=== PATIENT | female | born 1980 | race Caucasian/White ===

== ENCOUNTER 2017-01-02 13:02 | Inpatient (IN) | payer BC ==
[~2017-01-02] VITALS: Ht 162.6 cm; Wt 56.2 kg
--- NOTE | 2017-01-02 13:08 | NUR ---
pt bibra to er bed 14. here for aloc. possible od to methadone per report. pt appears sleepy and lethargic. arousable. placed on monitor. 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 awaitng md torre. will monitor closely.
--- NOTE | 2017-01-02 13:17 | NUR ---
[facility] [employer] cook at bedside for eval.
[2017-01-02 13:43] LABS: BASOPHILS % (AUTO) 0.5 % (0.0-2.0); EOSINOPHILS # (AUTO) 0.1 /CMM (0.0-0.7); EOSINOPHILS % (AUTO) 2.2 % (0.0-6.0); HEMATOCRIT 37 % (33-45); HEMOGLOBIN 12.5 g/dL (11.5-14.8); LYMPHOCYTES # (AUTO) 2.3 /CMM (0.8-4.8); LYMPHOCYTES % (AUTO) 54.3 % (20.0-44.0); MEAN CORPUSCULAR HEMOGLOBIN 30 PG (26.0-33.0); MEAN CORPUSCULAR HGB CONC 34 g/dl (31.0-36.0); MEAN CORPUSCULAR VOLUME 88 fL (82-100); MONOCYTES # (AUTO) 0.3 /CMM (0.1-1.30); MONOCYTES % (AUTO) 6.7 % (2.0-12.0); NEUTROPHILS # (AUTO) 1.6 /CMM (1.8-8.9); NEUTROPHILS % (AUTO) 36.3 % (43.0-81.0); PLATELET COUNT (AUTO) 298 /CMM (150-450); RDW COEFFICIENT OF VARIATION 13.9 (11.5-15.0); RED BLOOD CELL COUNT(AUTO) 4.13 MIL/uL (4.0-5.2); WHITE BLOOD COUNT (AUTO) 4.3 K/uL (4.3-11.0)
[2017-01-02 14:01] LABS: CALCIUM, SERUM 8.2 mg/dL (8.5-10.1); CREATININE 0.7 mg/dL (0.6-1.3); POTASSIUM 3.5 mmol/L (3.5-5.1)
[2017-01-02 14:07] LABS: ALBUMIN 3.5 g/dL (3.4-5.0); BILIRUBIN,DIRECT 0.2 mg/dL (0.0-0.2); BILIRUBIN,TOTAL 0.4 mg/dL (0.2-1.0); TOTAL PROTEIN, SERUM 7.7 g/dL (6.4-8.2)
[2017-01-02 14:08] LABS: SALICYLATE 2.1 mg/dL (2.8-20.0)
[2017-01-02] MEDS ORDERED: ONDANSETRON 4 MG TAB.RAPDIS ONE (14:16)
--- NOTE | 2017-01-02 14:20 | NUR ---
pt is nauseated. marsii caustic pump operator aware. order for zofran 4mg odt SL. carried out.
[2017-01-02] MEDS ORDERED: ONDANSETRON 4 MG TAB.RAPDIS SL ONE (14:30)
[2017-01-02] MEDS ORDERED: METH10TA2 PO (15:09)
--- NOTE | 2017-01-02 15:23 | NUR ---
CALLED NURSING SUP. FOR JOY BED
--- NOTE | 2017-01-02 15:25 | NUR ---
NEETU CALLED, [employer] FUNERAL ATTENDANT, TRANSFERRED CALL TO CAROL (RADHA)
[2017-01-02] MEDS ORDERED: ALBUTEROL FS 2.5 MG/0.5 ML VIAL.NEB NEB ONE (15:30)
[2017-01-02] MEDS ORDERED: LEVOFLOXACIN 750 MG /D5W 150ML PIGGYBACK IV ONE (15:30)
[2017-01-02] MEDS ORDERED: IV SET PRIMARY PUMP SET 1 EA INFUS.SET MC ONE (15:35)
[2017-01-02] MEDS ORDERED: LEVOFLOXACIN 750 MG /D5W 150ML 150 ML IV ONE (15:35)
[2017-01-02] MEDS ORDERED: ALBUTEROL FS 2.5 MG/0.5 ML VIAL.NEB ONE (16:07)
--- NOTE | 2017-01-02 16:53 | NUR ---
report given to emmanuel. pt awaiting transfer to floor.
[2017-01-02] MEDS ORDERED: MAGNESIUM HYDROXIDE 30 ML UDC PO PRN (17:00)
[2017-01-02] MEDS ORDERED: ZOLPIDEM TARTRATE 5 MG TABLET PO PRN (17:00)
[2017-01-02] MEDS ORDERED: ACETAMINOPHEN 325 MG TABLET PO PRN (17:00)
[2017-01-02] MEDS ORDERED: IV NS 0.9% 1,000 ML IV PRN (17:00)
[2017-01-02 18:00] VITALS: BP 101/64
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
[2017-01-02] MEDS: CEFTRIAXONE 1 G in IV D5W 50 ML IV SCH (19:07)
[2017-01-02] MEDS: NICOTINE PATCH (14MG) 14 MG PATCH.TD24 TD SCH (19:07)
[2017-01-02 20:00] VITALS: BP 95/52
[2017-01-02] MEDS: clonazePAM 1 MG TABLET PO PRN (20:55)
--- NOTE | 2017-01-02 20:56 | NUR ---
JOY/RN- PT STATES THST SHE IS FEELING ANXIOUS. CALMING MEASURES GIVEN. NON PHARMACOLOGICAL MEANS OF ANTI ANXIETY METHODS INEFFECTIVE. PRN KLONOPIN 1 MG PO GIVEN PRN FOR ANXIETY. TOLERATED WELL. NO S/SX OF ADVERSE REACTION NOTED. WILL MONITOR FOR CHANGES IN BEHAVIOR.
[2017-01-03] VITALS: BP 96/52
[2017-01-03 04:00] VITALS: BP 96/63
--- NOTE | 2017-01-03 06:34 | NUR ---
JOY/RN - ALL NEEDS ATTENDED AND MET. NO ACUTE DISTRESS NOTED. WILL ENDORSE TO AM SHIFT FOR CONTINUATION OF CARE.
--- NOTE | 2017-01-03 07:00 | NUR ---
CALLED [facility] AND FAXED REQUEST FOR RECORDS TO BE FAXED OVER. CLINIC CONFIRMED HAVING RECEIVED REQUEST. NOTED CLINIC CLOSES AT 0945.
[2017-01-03 07:19] LABS: BASOPHILS % (AUTO) 0.4 % (0.0-2.0); EOSINOPHILS # (AUTO) 0.1 /CMM (0.0-0.7); EOSINOPHILS % (AUTO) 3.5 % (0.0-6.0); HEMATOCRIT 36 % (33-45); HEMOGLOBIN 12.1 g/dL (11.5-14.8); LYMPHOCYTES # (AUTO) 1.6 /CMM (0.8-4.8); MEAN CORPUSCULAR HEMOGLOBIN 30 PG (26.0-33.0); MEAN CORPUSCULAR HGB CONC 34 g/dl (31.0-36.0); MEAN CORPUSCULAR VOLUME 90 fL (82-100); MONOCYTES # (AUTO) 0.3 /CMM (0.1-1.30); MONOCYTES % (AUTO) 9.6 % (2.0-12.0); NEUTROPHILS # (AUTO) 1.3 /CMM (1.8-8.9); NEUTROPHILS % (AUTO) 38.5 % (43.0-81.0); PLATELET COUNT (AUTO) 256 /CMM (150-450); RDW COEFFICIENT OF VARIATION 14.9 (11.5-15.0); RED BLOOD CELL COUNT(AUTO) 3.96 MIL/uL (4.0-5.2); WHITE BLOOD COUNT (AUTO) 3.4 K/uL (4.3-11.0)
[2017-01-03 07:54] LABS: CALCIUM, SERUM 8.5 mg/dL (8.5-10.1); CREATININE 0.7 mg/dL (0.6-1.3); MAGNESIUM 1.9 mg/dL (1.8-2.4); PHOSPHORUS 3.3 mg/dL (2.5-4.9); POTASSIUM 4.2 mmol/L (3.5-5.1)
[2017-01-03 08:00] VITALS: BP 101/68
[2017-01-03] MEDS: NICOTINE PATCH (14MG) 14 MG PATCH.TD24 TD SCH (08:51)
[2017-01-03] MEDS: PANTOPRAZOLE 40 MG TABLET.DR PO SCH (08:51)
[2017-01-03] MEDS: clonazePAM 1 MG TABLET PO PRN ×2 (08:52→18:05)
--- NOTE | 2017-01-03 09:30 | NUR ---
CALLED [facility] 2X AND PHARMACIST CALLED 1 TIME- TO NO AVAIL. PHARMACY AND DOCTOR UNABLE TO PRESCRIBE [facility] TODAY.
--- NOTE | 2017-01-03 11:11 | NUR ---
RN NOTE PER DR. RUBÉN STARKS, PATIENT IS TO BE DISCHARGE AFTER INDUSTRIAL PIPEFITTER JOURNEYMAN TALKS TO PATIENT ABOUT FINDING HOUSING. PATIENT STATES "I NEED SOMEWHERE TO SLEEP BECAUSE OTHERWISE I WILL BE ON THE STREETS". INDUSTRIAL PIPEFITTER JOURNEYMAN ASH SPOKE TO PATIENT AND STATED SHE WILL TRY TO FIND CUSTODIAL. PATIENT STATING HAVING NAUSEA RELATED TO NOT RECEIVING [facility] TODAY. OFFERED ANTINAUSEA/EMETIC. PATIENT REFUSED REQUESTED NARCOTIC. DR. RUBÉN STARKS GAVE VERBAL ORDER FOR PERCOSET 1 TIME NOW.
--- NOTE | 2017-01-03 11:26 | NUR ---
MEDICATION RETURN NOTE ACCIDENTALLY REMOVED ONE TAB PERCOSET INSTEAD OF TWO TABS ORDERED. NOTIFIED PHARMACIST WHO SAID RETURN MEDICATION AND ORDER WILL BE RE-ENTERED FOR ONE TIME DOES OF PERCOSET . MEDICATION RETURNED WITH WITNESS.
[2017-01-03] MEDS ORDERED: oxyCODONE/APAP (5/325 MG) 1 UDTAB TABLET PO ONE (11:30)
[2017-01-03] MEDS: ONDANSETRON HCL/PF 4 MG/2 ML VIAL IVP PRN (11:43)
[2017-01-03 12:00] VITALS: BP_SYST 101; BP_SYST 111; BP_DIAS 68; BP_DIAS 69
[2017-01-03] MEDS: LORAZEPAM INJ 2 MG/ML VIAL IV PRN (13:50)
[2017-01-03 16:00] VITALS: BP 97/49
[2017-01-03] MEDS ORDERED: SECONDARY IV SET 1 EA INFUS.SET MC ONE (16:29)
[2017-01-03] MEDS: LEVOFLOXACIN 750 MG /D5W 150ML 750 MG in PREMIX 1 EA IV SCH (16:33)
[2017-01-03] MEDS: CEFTRIAXONE 1 G in IV D5W 50 ML IV SCH (17:41)
--- NOTE | 2017-01-03 19:04 | NUR ---
end of shift patient in stable condition at end of shift. paged dr. Tonny Jerome regarding pending discharge for placement, no response. informed patient's significant other that visiting hours end at 1999. verbalized understanding. call light in reach.
[2017-01-03 20:00] VITALS: BP 110/71
--- NOTE | 2017-01-03 20:20 | NUR ---
INITIAL RN NOTES RECEIVED PT AWAKE IN BED, AOX4, STATES SHE IS COMFORTABLE, ALL NEEDS MET MET, DENIES ANY SOB OR PAIN, CLEAN AND DRY, WITH [facility] ORDER TO BE F/U WITH PHARMACY IN AM.
[2017-01-04] VITALS (7 sets, daily range): BP systolic 91–131; BP diastolic 48–88
--- NOTE | 2017-01-04 06:51 | NUR ---
CLOSING RN NOTES ENDORSED PT AWAKE IN BED, AOX4, STATES SHE IS COMFORTABLE, ALL NEEDS MET MET, DENIES ANY SOB OR PAIN, CLEAN AND DRY, WITH [facility] ORDER TO BE F/U WITH PHARMACY IN AM,ALL NEEDS ATTENDED, FOR PENDING DISCHARGE IN AM.
--- NOTE | 2017-01-04 08:00 | NUR ---
TELE1/RN AM SHIFT INITIAL NOTES RECEIVED PT ASLEEP IN BED. PT A/O X 4. AROUSEABLE, DENIES PAIN. NO ACUTE CHANGE OF CONDITION NOTED. ON ROOM AIR SATURATING @ 100%, LUNG SOUNDS CLEAR. ON TELE WITH SINUS RHYTHM, HR 84. WITH ON GOING IV INFUSION OF NS @ 75CC/HR, IV SITE PATENT WITH NO S/S OF INFECTION. PT IS COMFORTABLE. SCHEDULED AM MEDS TO BE GIVEN. CL WITHIN REACHED, SAFETY MAINTAINED AND ISOLATION OBSERVED. ON GOING MONITORING.
[2017-01-04] MEDS: NICOTINE PATCH (14MG) 14 MG PATCH.TD24 TD SCH (09:11)
[2017-01-04] MEDS: METHADONE HCL 10 MG TABLET PO SCH (09:12)
[2017-01-04] MEDS: PANTOPRAZOLE 40 MG TABLET.DR PO SCH (09:12)
[2017-01-04] MEDS: clonazePAM 1 MG TABLET PO PRN ×2 (09:18→21:10)
--- NOTE | 2017-01-04 10:00 | NUR ---
TELE1/RN ROUNDS - DR. MONTANA PT SEEN & EXAMINED BY DR. MONTANA. WITH NEW ORDER RECEIVED TO D/C CONTINUOUS IV INFUSION. ORDER NOTED AND CARRIED OUT. MONITORING CONTINUED.
[2017-01-04] MEDS: LORAZEPAM INJ 2 MG/ML VIAL IV PRN (12:42)
[2017-01-04] MEDS: LEVOFLOXACIN 750 MG /D5W 150ML 750 MG in PREMIX 1 EA IV SCH (16:01)
--- NOTE | 2017-01-04 17:00 | NUR ---
TELE1/RN AFTERNOON ROUNDS NO ACUTE CHANGE OF CONDITION. PT'S SIGNIFICANT OTHER AT BEDSIDE. MONITORING CONTINUED.
[2017-01-04] MEDS: CEFTRIAXONE 1 G in IV D5W 50 ML IV SCH (17:45)
--- NOTE | 2017-01-04 19:02 | NUR ---
TELE1/RN AM SHIFT END NOTES NO ACUTE CHANGE OF CONDITION NOTED DURING THE SHIFT. NEEDS MET. PT ENDORSED TO PM NURSE TO CONTINUE CARE. CL WITHIN REACHED, SAFETY MAINTAINED AND ISOLATION OBSERVED.
--- NOTE | 2017-01-04 19:30 | NUR ---
RN OPENING NOTES; RECEIVED PATIENT ON BED AWAKE ALOX4 VERBALLY RESPONSIVE. ON ROOM AIR WITH EVEN AND UNLABORED BREATHING. IV ACCESS ON R WRIST G20 IV ANTIBIOTIC INFUSING. NO COMPLAINTS OF PAIN AT THIS TIME. SAFETY MEASURES ENSURED. CALL LIGHT WITHIN REACH. MONTIORED ACCORDINGLY.
[2017-01-04] MEDS: MUPIROCIN OINT 2% 22 GM TUBE SCH (21:10)
[2017-01-05] VITALS: BP 98/56
[2017-01-05 04:00] VITALS: BP 114/77
--- NOTE | 2017-01-05 06:54 | NUR ---
RN CLOSING NOTES;PATIENT REMAINED IN BED NOT IN APPARENT DISTRESS. NO ACUTE CHANGES OCCURRED WITHIN SHIFT. REMAINED SR ON MONITOR. CONTINUOUSLY MONITORED. ENDORSED TO AM SHIFT RN.
--- NOTE | 2017-01-05 07:00 | NUR ---
RN NOTES; RECEIVED PATIENT ON BED, AWAKE ALOX4, RESPIRATION EVEN AND UNLABORED, ON ROOM , NO DISTRESS NOTED, R WRIST IV SITE G 20 CDI, ON TELE , PT DINES ANY DISTRESS AT THIS TIME , SR UP x3, CALL LIGHT WITHIN EASY REACH, CONTINUE TO MONITOR PT CLOSELY AND NOTIFY MD FOR ANY SIGNIFICANT CHANGES.
[2017-01-05] MEDS: ONDANSETRON HCL/PF 4 MG/2 ML VIAL IVP PRN (07:55)
[2017-01-05] MEDS: PANTOPRAZOLE 40 MG TABLET.DR PO SCH (07:58)
[2017-01-05 08:00] VITALS: BP 122/81
[2017-01-05] MEDS: MUPIROCIN OINT 2% 22 GM TUBE SCH (08:00)
[2017-01-05] MEDS: NICOTINE PATCH (14MG) 14 MG PATCH.TD24 TD SCH (08:01)
[2017-01-05] MEDS: METHADONE HCL 10 MG TABLET PO SCH (08:01)
[2017-01-05] MEDS: clonazePAM 1 MG TABLET PO PRN (08:33)
--- NOTE | 2017-01-05 11:16 | NUR ---
RN NOTES DISCHARGE INSTRUCTION GIVEN TO PT , VERBALIZES UNDERSTANDING, PT REFUSED SKIN ASSESSMENT , NO APPARENT SKIN ISSUES NOTED, IV SITE D/ED, PER DISCHARGE ORDER, PT IRENA ANY DISTRESS, PT LEFT THE FLOOR TO MAIN ENTRANCE ACCOMPANIED BY STAFF MEMBERS IN STABLE CONDITION .TAXI ORDERED BY SULKY DRIVER.
--- NOTE | 2017-01-05 11:20 | NUR ---
Social service consult requested by Dr. Lancaster for fci placement. Per H&P report by RADHA Patton, pt. is a 36-year-old female brought in by EMS with complaints of suspected accidental opiate overdose. She was given a total of 3 mg of Narcan in the field, and vomited profusely. Pt. smelled of ETOH. She denies other drug use except for prescribed methadone which she took on day prior to admission. MARC met with pt. bedside. Pt. is pleasant and friendly with SW during the assessment. Pt. appeared disheveled. Pt. has been homeless for the past two years. Prior to two years, pt. was residing in an apartment with her brother. Pt. admits to drinking large beer cans daily along with her boyfriend. 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 Pt. last used heroine approximately two years ago. 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 Pt. is looking for fci placement. MARC contacted [facility] day fci located at [address] [place] [id number]. MARC spoke to [place] at [facility] who informed they have a top bunk bed available and to have pt. be at their facility by 12:30PM. MARC informed pt. about the fci placement. Pt. was happy to hear that there was fci placement available and accepted to go to the fci. Transportation by taxi was provided to the fci located [id number] [place] [id number]. MARC informed pt. to ask for [place] once she got to the fci. MARC also gave pt. the following resources: Homeless Resource Directory with list of resources, list of food [place], list of homeless shelters and Homeless Access centers. MARC also gave pt. a bus token per her request. Homeless Patient Waiver Form was signed by pt. and placed in chart. fueler Amy and AYLA Garcia were informed about the discharge plan. Addendum: 01/05/17 at 1145 by NAIN RTAN PtKarolyn also receives General Relief and Food stamps.
== END 2017-01-05 11:31 | disposition home or self-care (01) | DRG 812 ==
LOC: ER 13:03 → TELE-TD 16:40 → TELE1 01-03 00:25
PROVIDERS: ADMIT Nurse Practitioner Acute Care; ATTEND Nurse Practitioner Acute Care
DX: T40.3X1A Poisoning by methadone, accidental (unintentional), initial encounter (principal); G92 Toxic encephalopathy; Y92.89 Other specified places as the place of occurrence of the external cause; Z59.0 Homelessness; F17.200 Nicotine dependence, unspecified, uncomplicated; F10.10 Alcohol abuse, uncomplicated; R74.0 Nonspecific elevation of levels of transaminase and lactic acid dehydrogenase [LDH]; Z88.0 Allergy status to penicillin; Z88.2 Allergy status to sulfonamides
CPT/HCPCS: 36415; 71010-TC; 80048-TC; 80061-TC; 80076-TC; 83735-TC; 84100-TC; 85025-TC; 87040-TC; 87081-TC; A4216; A4606; G0480; J0696; J1956; J2060; J2405; J7030; J7060; Q0162; Z7610

== ENCOUNTER 2017-02-23 15:06 | Emergency (ER) | payer BC ==
[~2017-02-23] VITALS: Ht 162.6 cm; Wt 47.6 kg
[~2017-02-23 15:06] MED LIST: METH10TA2 PO
--- NOTE | 2017-02-23 15:12 | NUR ---
pt ambulatory to er bed 15. pt states witnessed seizure last night. also c/o vomiiting w/ blood tinged. 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 gowned and placed on monitor. awaiting md torre.
--- NOTE | 2017-02-23 16:32 | NUR ---
dr nguyen at bedside for eval.
[2017-02-23 16:58] LABS: BASOPHILS % (AUTO) 0.9 % (0.0-2.0); EOSINOPHILS % (AUTO) 0.5 % (0.0-6.0); HEMATOCRIT 37 % (33-45); HEMOGLOBIN 12.3 g/dL (11.5-14.8); LYMPHOCYTES # (AUTO) 1.7 /CMM (0.8-4.8); LYMPHOCYTES % (AUTO) 31.3 % (20.0-44.0); MEAN CORPUSCULAR HEMOGLOBIN 30 PG (26.0-33.0); MEAN CORPUSCULAR HGB CONC 33 g/dl (31.0-36.0); MEAN CORPUSCULAR VOLUME 91 fL (82-100); MONOCYTES # (AUTO) 0.4 /CMM (0.1-1.30); MONOCYTES % (AUTO) 6.5 % (2.0-12.0); NEUTROPHILS # (AUTO) 3.4 /CMM (1.8-8.9); NEUTROPHILS % (AUTO) 60.8 % (43.0-81.0); PLATELET COUNT (AUTO) 244 /CMM (150-450); RDW COEFFICIENT OF VARIATION 13.3 (11.5-15.0); RED BLOOD CELL COUNT(AUTO) 4.05 MIL/uL (4.0-5.2); WHITE BLOOD COUNT (AUTO) 5.5 K/uL (4.3-11.0)
[2017-02-23] MEDS ORDERED: IV NS 0.9% 1,000 ML BAG IV ONE (17:00)
[2017-02-23] MEDS ORDERED: FAMOTIDINE/PF INJ 20 MG/2 ML VIAL IV ONE ×2 (17:00→17:50)
[2017-02-23] MEDS ORDERED: LEVETIRACETAM (500MG) 500 MG in IV NS 0.9% 100 ML IV SCH (17:00)
[2017-02-23 17:11] LABS: CALCIUM, SERUM 8.3 mg/dL (8.5-10.1); CARBON DIOXIDE 29 mmol/L (21-32); CHLORIDE 102 mmol/L (98-107); CREATININE 0.9 mg/dL (0.6-1.3); GLUCOSE 93 mg/dL (74-106); POTASSIUM 4.4 mmol/L (3.5-5.1); SODIUM SERUM 135 mmol/L (136-145); UREA NITROGEN, BLOOD 12 mg/dL (7-18)
[2017-02-23 17:15] LABS: APPEARANCE,URINE Slightly Cloudy (CLEAR); BILIRUBIN,URINE Negative (NEGATIVE); BLOOD, URINE Negative Ery/uL (NEGATIVE); COLOR,URINE Yellow (YELLOW); KETONES,URINE Negative (NEGATIVE); LEUKOCYTE ESTERASE ,URINE Negative (NEGATIVE); NITRITE, URINE Negative (NEGATIVE); PH,URINE 5.5 (5.0-8.0); PROTEIN,URINE Trace mg/dl (NEGATIVE); UGLUCOSE Negative (NEGATIVE); UROBILINOGEN,URINE 0.2 EU/dL (0.2)
[2017-02-23 17:17] LABS: ACETAMINOPHEN 0 ug/ml (10-30); ALANINE AMINOTRANSFERASE 124 U/L (12-78); ALBUMIN 3.6 g/dL (3.4-5.0); ALCOHOL, BLOOD < 3 mg/dL (0-0); ALKALINE PHOSPHATASE 128 U/L (46-116); ASPARTATE AMINOTRANSFERASE 176 U/L (15-37); BILIRUBIN,DIRECT 0.2 mg/dL (0.0-0.2); BILIRUBIN,TOTAL 0.5 mg/dL (0.2-1.0); SALICYLATE 2.5 mg/dL (2.8-20.0); TOTAL PROTEIN, SERUM 7.7 g/dL (6.4-8.2)
[2017-02-23 17:19] LABS: INR 1.04 (0.87-1.13); PROTHROMBIN TIME 10.8 SECS (9.5-12.7)
[2017-02-23 17:20] LABS: BACTERIA,URINE Moderate /HPF (None Seen); RBC,URINE 0-2 /HPF (0-2); SQUAMOUS EPITHELIAL CELL,UR Many /HPF (None Seen)
--- NOTE | 2017-02-23 18:01 | NUR ---
PT MIGHT BE POSITIVE FOR HCG, WAITING FOR RESULT BEFORE CXR & CT SCAN.
--- NOTE | 2017-02-23 19:29 | NUR ---
Patient discharged to home in stable condition. Written and verbal after care instructions given. Patient verbalizes understanding of instruction.IV removed. Catheter intact and site benign. Pressure and 4x4 applied to site. No bleeding noted.
[2017-02-23 19:31] VITALS: BP 125/64
== END 2017-02-23 19:54 | disposition home or self-care (01) ==
LOC: ER 15:08
DX: G40.909 Epilepsy, unspecified, not intractable, without status epilepticus (principal); F10.10 Alcohol abuse, uncomplicated; K29.70 Gastritis, unspecified, without bleeding; K92.0 Hematemesis; R41.82 Altered mental status, unspecified; Z88.0 Allergy status to penicillin; Z88.2 Allergy status to sulfonamides; Z88.1 Allergy status to other antibiotic agents
CPT/HCPCS: 36415; 70450-TC; 71010-TC; 80048-TC; 80076-TC; 80305; 81000-TC; 84703-TC; 85025-TC; 85610-TC; 85730-TC; 87086-TC; A4606; G0480; J1953; J3490; J7030; Z7610